=== PATIENT | female | born 1950 | race Caucasian/White ===

== ENCOUNTER 2019-09-03 06:05 | Emergency (ER) | payer MEDICARE, OTHER ==
[~2019-09-03] VITALS: Ht 162.6 cm; Wt 80.7 kg
[2019-09-03 06:07] VITALS: BP 178/107
--- NOTE | 2019-09-03 06:30 | NUR ---
Pt c/o R hand pain after being pulled to ground while walking her dog yesterday. Also states bilat knee pain but does not want this evaluated at this time. Declines changing into gown and only wants eval of hand. R hand swollen and red. Provider at bedside to eval. Call light in reach.
--- NOTE | 2019-09-03 06:55 | NUR ---
Ford completed. Report to Jesus CHINCHILLA.
== END 2019-09-03 08:24 | disposition home or self-care (01) ==
LOC: ED 06:41
DX: S63.521A Sprain of radiocarpal joint of right wrist, initial encounter (principal); S60.221A Contusion of right hand, initial encounter; Z90.89 Acquired absence of other organs; W01.0XXA Fall on same level from slipping, tripping and stumbling without subsequent striking against object, initial encounter; Y93.89 Activity, other specified; Y92.488 Other paved roadways as the place of occurrence of the external cause; Y99.8 Other external cause status
CPT/HCPCS: 99283